=== PATIENT | female | born 1990 | race Caucasian/White ===

== ENCOUNTER → 2019-05-11 | Outpatient (CLI) | payer OTHER ==
[~2019-05-11] MED LIST: Amoxicillin500 MG PO; IBUP200; NAPR375 PO; NEOPOLHCSU OT
== END | disposition home or self-care (01) ==
LOC: OLS 15:00 → LAB SHORT 15:00
PROVIDERS: Physician Assistant
DX: Z12.4 Encounter for screening for malignant neoplasm of cervix (principal)
CPT/HCPCS: G0145

== ENCOUNTER 2021-04-13 18:04 | Inpatient (IN) | payer OTHER ==
[~2021-04-13] VITALS: Ht 167.6 cm; Wt 114.1 kg
[~2021-04-13 18:04] MED LIST changes: -AMOCLA875 PO; -Percocet 10-321 EACH PO
[2021-04-13 19:22] LABS: BASOPHILS ABSOLUTE AUTO 0.06 K/mm3 (0.00-0.23); BASOPHILS PERCENT AUTO 0 % (0-2); EOSINOPHILS PERCENT AUTO 0 % (0-6); Hematocrit 44.7 % (33.0-51.0); IMMATURE GRAN ABSOLUTE AUTO 0.15 K/mm3 (0.00-0.10); IMMATURE GRAN PERCENT AUTO 1 % (0-1); LYMPHOCYTES ABSOLUTE AUTO 0.82 K/mm3 (0.84-5.20); LYMPHOCYTES PERCENT AUTO 5 % (21-46); MONOCYTES ABSOLUTE AUTO 1.05 K/mm3 (0.16-1.47); MONOCYTES PERCENT AUTO 6 % (4-13); Mean Corpuscular HGB 28.5 pg (26.0-34.0); Mean Corpuscular HGB Conc 33.6 g/dL (31.5-36.5); Mean Corpuscular Volume 85 fL (80-100); Mean Platelet Volume 11.3 fL (9.1-12.4); NEUTROPHILS ABSOLUTE AUTO 15.01 K/mm3 (1.96-9.15); NEUTROPHILS PERCENT AUTO 88 % (41-73); Platelet Count 235 K/mm3 (150-400); RDW Coefficient Variation 12.8 % (11.7-14.2); RDW Standard Deviation 39.8 fL (35.1-46.3); Red Blood Cell Count 5.27 M/mm3 (3.80-5.20); White Blood Cell Count 17.09 K/mm3 (4.00-11.30)
[2021-04-13 19:41] LABS: Albumin, Blood 2.8 g/dL (3.4-5.0); Albumin/Globulin Ratio 0.6 (0.8-1.8); Bilirubin, Total 2.4 mg/dL (0.1-1.0); Bun/Creatinine Ratio 13.9 (12.0-20.0); Calcium, Blood 9.1 mg/dL (8.5-10.1); Creatinine, Blood 1.51 mg/dL (0.40-1.00); Potassium, Blood 3.2 mmol/L (3.5-5.5); Total Protein, Blood 7.8 g/dL (6.4-8.2)
[2021-04-13 19:57] LABS: International Normalized Ratio 1.17; Prothrombin Time Results 12.2 Sec (9.7-11.5)
[2021-04-13 22:13] LABS: SARS-Cov-2 (COVID-19) PCR, MMC NEGATIVE (NEGATIVE)
--- NOTE | 2021-04-14 01:57 | NUR ---
PATIENT ARRIVED ON THE UNIT WITH SISTER 04/13/21 AT 2255 ALERT AND ORIENTED AND ABLE TO MAKE NEEDS KNOWN. PER SISTER PATIENT HAS LEARNING DISABILITY AND MEDICAL TERMS SHOULD NOT BE USED AND THINGS NEED TO BE EXPLAINED TO PATIENT IN SIMPLE TERMS AND EXPLAINATIONS. ASSESSMENT WAS DONE ALL PULSES ARE PALPABLE, LUNG SOUNDS ARE CLEAR, BOWEL SOUNDS ARE PRESENT, VITALS ARE STABLE. PATIENT STATED PAIN WAS 3/10, WHICH IS TOLERABLE. NO SIGNS OF DISTRESS AND DISCOMFORT ARE NOTED. WILL CONTINUE TO MONITOR,
--- NOTE | 2021-04-14 10:00 | NUR ---
04/14/21 1000 Steve Singer PATIENT ON SCHEDULED ANTIBIOTICS. URINE NEGATIV EPRIOR TO CASE.
--- NOTE | 2021-04-14 18:18 | NUR ---
PATIENT BACK FROM SURGERY AROUND 1130 TODAY. AWAKE AND ALERT, ABLE TO ANSWER QUESTIONS APPROPRIATELY. NO SIGNS OR SYMPTOMS ACUTE DISTRESS NOTED AT THIS TIME. CALL LIGHT AND WATER IN EASY REACH. NO COMPLAINTS OF NAUSEA. AT [facility]IR FOR DINNER. TOLERATED WELL. ABLE TO MAKE NEEDS KNOWN. UP TO BATHROOM, URINATED, CURRENTLY AT END OF MENSES PER PATIENT. SELF CARE FOR [facility] CARE AT THIS TIME. LAP SITES CDI, NO DRAINAGE NOTED. OZIEL DRAIN COMPRESSED WITH SEROSANG DRAINAGE NOTED IN BULB. WILL CONTINUE TO MONITOR.
--- NOTE | 2021-04-15 06:24 | NUR ---
POD 1 S/P LAP APPY. PT VSS T/O NIGHT. DRESSINGS INTACT, LOWER ABD SITE W/SS DRNG. OZIEL PUT OUT 30 ML SS DRNG. PAIN MGD W/TORADOL W/REP RELIEF. PT HERB PO, DENIED N/V, REP +FLATUS. PT IS VOIDING URINE W/O DIFFICULTY. PT AMB W/SBA, HERB WELL. IVF AND ABX CONT PER ORDERS.
--- NOTE | 2021-04-15 18:15 | NUR ---
PATIENT UP TO CHAIR MOST OF DAY. NO SIGNS OR SYMPTOMS ACUTE DISTRESS NOTED. PATIENT DID COMPLAIN OF NAUSEA AFTER EATING LUNCH, ZOFRAN GIVEN PER ORDERS. CALL LIGHT AND WATER IN EASY REACH. ABLE TO MAKE NEEDS AND WANTS KNOWN. OZIEL DRAIN TO RIGHT QUAD OF ABD. SEROSANG DRAINAGE NOTED, OZIEL COMPRESSED. WILL MONITOR.
[2021-04-16 04:18] LABS: BASOPHILS ABSOLUTE AUTO 0.03 K/mm3 (0.00-0.23); BASOPHILS PERCENT AUTO 0 % (0-2); EOSINOPHILS ABSOLUTE AUTO 0.01 K/mm3 (0.00-0.68); EOSINOPHILS PERCENT AUTO 0 % (0-6); Hematocrit 35.6 % (33.0-51.0); Hemoglobin 11.7 g/dL (11.5-16.0); IMMATURE GRAN ABSOLUTE AUTO 0.13 K/mm3 (0.00-0.10); IMMATURE GRAN PERCENT AUTO 1 % (0-1); LYMPHOCYTES ABSOLUTE AUTO 1.84 K/mm3 (0.84-5.20); LYMPHOCYTES PERCENT AUTO 17 % (21-46); MONOCYTES ABSOLUTE AUTO 0.98 K/mm3 (0.16-1.47); MONOCYTES PERCENT AUTO 9 % (4-13); Mean Corpuscular HGB 28.5 pg (26.0-34.0); Mean Corpuscular HGB Conc 32.9 g/dL (31.5-36.5); Mean Corpuscular Volume 87 fL (80-100); Mean Platelet Volume 10.8 fL (9.1-12.4); NEUTROPHILS ABSOLUTE AUTO 7.73 K/mm3 (1.96-9.15); NEUTROPHILS PERCENT AUTO 72 % (41-73); Platelet Count 259 K/mm3 (150-400); RDW Coefficient Variation 13.7 % (11.7-14.2); RDW Standard Deviation 43.8 fL (35.1-46.3); White Blood Cell Count 10.72 K/mm3 (4.00-11.30)
[2021-04-16] MEDS ORDERED: AMOCLA875 PO (11:10)
[2021-04-16] MEDS ORDERED: Percocet 10-321 EACH PO (11:10)
--- NOTE | 2021-04-16 11:54 | NUR ---
DISCHARGE INSTRUCTIONS GIVEN TO PATIENT AT THIS TIME. PATIENT VERBALZIED UNDERSTANDING. DISCHARGE INSTRUCTIONS GIVEN TO PATIENTS MOTHER WELL, SHE ALSO VERBALIZED UNDERSTANDING. PRESCRIPTIONS GIVEN TO PATIENT. NO SIGNS OR SYMPTOMS ACUTE DISTRESS NOTED. NO COMPLAINTS OF PAIN VOICED AT THIS TIME. TAKEN TO CARE VIA WHEELCHAIR.
== END 2021-04-16 12:45 | disposition home or self-care (01) | DRG 340 ==
LOC: ER 18:04 → SURS 20:47
PROVIDERS: Emergency Medicine; ADMIT Surgery
PROC: 0DTJ4ZZ Resection of Appendix, Percutaneous Endoscopic Approach (ICD-10-PCS; principal; 2021-04-14 09:00)
DX: K35.32 Acute appendicitis with perforation, localized peritonitis, and gangrene, without abscess (principal); Z20.822 Contact with and (suspected) exposure to COVID-19; E66.9 Obesity, unspecified; Z68.33 Body mass index [BMI] 33.0-33.9, adult
CPT/HCPCS: 36415; 80053; 85025; 85610; 86850; 86900; 86901; 88304; 96365; 96375; 99285-25; A9270; J1100; J1170; J1885; J2250; J2405; J2543; J2704; J3010; J7050; J7120; U0004

== ENCOUNTER → 2021-04-13 | Outpatient (CLI) | payer OTHER ==
[~2021-04-13] MED LIST changes: +AMOCLA875 PO; +Percocet 10-321 EACH PO
[2021-04-13 16:16] LABS: BASOPHILS ABSOLUTE AUTO 0.04 K/mm3 (0.00-0.23); BASOPHILS PERCENT AUTO 0 % (0-2); Hemoglobin 14.4 g/dL (11.5-16.0); LYMPHOCYTES ABSOLUTE AUTO 0.77 K/mm3 (0.84-5.20); LYMPHOCYTES PERCENT AUTO 5 % (21-46); MONOCYTES ABSOLUTE AUTO 1.04 K/mm3 (0.16-1.47); MONOCYTES PERCENT AUTO 7 % (4-13); Mean Corpuscular HGB 28.7 pg (26.0-34.0); Mean Corpuscular HGB Conc 34.3 g/dL (31.5-36.5); Mean Corpuscular Volume 84 fL (80-100); Mean Platelet Volume 10.9 fL (9.1-12.4); Platelet Count 232 K/mm3 (150-400); RDW Coefficient Variation 13.2 % (11.7-14.2); RDW Standard Deviation 39.9 fL (35.1-46.3); Red Blood Cell Count 5.02 M/mm3 (3.80-5.20); White Blood Cell Count 15.52 K/mm3 (4.00-11.30)
[2021-04-13 16:22] LABS: Bun/Creatinine Ratio 12.8 (12.0-20.0); Calcium, Blood 9.1 mg/dL (8.5-10.1); Creatinine, Blood 1.64 mg/dL (0.40-1.00); Potassium, Blood 3.1 mmol/L (3.5-5.5)
[2021-04-13 16:23] LABS: EOSINOPHILS ABSOLUTE AUTO 0.05 K/mm3 (0.00-0.68); EOSINOPHILS PERCENT AUTO 0 % (0-6); IMMATURE GRAN ABSOLUTE AUTO 0.11 K/mm3 (0.00-0.10); IMMATURE GRAN PERCENT AUTO 1 % (0-1); NEUTROPHILS ABSOLUTE AUTO 13.51 K/mm3 (1.96-9.15); NEUTROPHILS PERCENT AUTO 87 % (41-73)
== END | disposition home or self-care (01) ==
LOC: LAB SHORT 16:12
PROVIDERS: Physician Assistant Surgical
DX: R11.10 Vomiting, unspecified (principal)
CPT/HCPCS: 80048; 85025

== ENCOUNTER → 2023-07-30 | Outpatient (CLI) | payer OTHER ==
[~2023-07-30] MED LIST changes: +AMOCLA875 PO; +Percocet 10-321 EACH PO
[2023-08-06 11:41] LABS: HPV GENOTYPE 16 Not Detected; HPV GENOTYPE 18 Not Detected; HPV HIGH RISK Not Detected; HPV SOURCE Cervical
== END ==
LOC: LAB 18:06 → LAB SHORT 18:06
PROVIDERS: Physician Assistant
DX: Z01.419 Encounter for gynecological examination (general) (routine) without abnormal findings (principal)
CPT/HCPCS: 87624; G0123